=== PATIENT | female | born 1995 | race African-American/Black ===

== ENCOUNTER 2022-09-20 19:05 | Inpatient (IN) | payer MEDICAID ==
[~2022-09-20] VITALS: Ht 152.4 cm; Wt 64.4 kg
[~2022-09-20 19:05] MED LIST: ATOR10TA69 MT; LANTUSUD SUBCUT; LEVO-65 MT
[2022-09-20] MEDS ORDERED: SODIUM CHLORIDE 0.9% 1,000 ML IV ONE ×2 (20:30→21:30)
[2022-09-20 20:41] LABS: HEMOGLOBIN. 14.8 g/dL (12.0-16.0); MEAN CORPUSCULAR HEMOGLOBIN 28.4 pg (28.0-32.0); MEAN CORPUSCULAR VOLUME 90.2 fL (81.0-99.0); PLATELET 202 x1000/uL (130-400); RED BLOOD CELL COUNT 5.21 mill/uL (4.2-5.4); RED CELL DISTRIBUTION WIDTH 14.8 % (11.6-14.6)
[2022-09-20 20:52] LABS: CHLORIDE 100 mEq/L (98-107)
[2022-09-20 20:57] LABS: HCG SCREEN NEGATIVE
[2022-09-20 21:07] LABS: BETA HYDROXYBUTYRATE 8.7 mMol/L (0.0-0.3)
[2022-09-20] MEDS ORDERED: INSULIN REGULAR (DRIP) 100 UNITS in SODIUM CHLORIDE 0.9% 100 ML IV ONE (21:30)
[2022-09-20 21:37] LABS: PLATELET ESTIMATE NORMAL
[2022-09-20] MEDS ORDERED: IOHEXOL-350 100 ML BOTTLE ONE (22:40)
[2022-09-20 23:17] LABS: CHLORIDE 107 mEq/L (98-107)
[2022-09-20 23:24] LABS: PHOSPHORUS 3.5 mg/dL (2.5-4.9)
[2022-09-21] VITALS (18 sets, daily range): BP systolic 106–136; BP diastolic 59–82
[2022-09-21 00:48] LABS: CHLORIDE 108 mEq/L (98-107)
[2022-09-21 02:22] LABS: CHLORIDE 107 mEq/L (98-107)
[2022-09-21 03:32] LABS: BG BASE EXCESS -26.4 mmol/L (-2.0-2.0); BG CARBOXYHEMOGLOBIN 0.4 % (0.5-1.5); BG DEOXYHEMOGLOBIN 1.4 % (0.0-5.0); BG FRACTION INSPIRED OXYGEN 21; BG METHEMOGLOBIN 0.3 % (0.0-1.5); BG OXYGEN SATURATION 98.6 % (92.0-98.5); BG OXYHEMOGLOBIN 97.9 % (94.0-97.0); BG PCO2 12.6 mmHg (35.0-45.0); BG PO2 137.3 mmHg (75.0-100.0); BG SAMPLE SITE LEFT RADIAL; BG TOTAL HEMOGLOBIN 15.3 g/dL (12.0-18.0); BG VENT MODE ROOM AIR
[2022-09-21] MEDS ORDERED: KCL 20MEQ/100ML PREMIX 100 ML IV PRN (03:45)
[2022-09-21] MEDS ORDERED: HYDROMORPHONE HCL/PF 2MG/ML CPJ IV PRN (03:45)
[2022-09-21] MEDS ORDERED: BLOOD SUGAR DIAGNOSTIC STRIP TEST SCH (03:45)
[2022-09-21] MEDS ORDERED: SODIUM CHLORIDE 0.45% 1,000 ML IV SCH (03:45)
[2022-09-21] MEDS ORDERED: DEXTROSE 50% WATER 50ML SYRINGE IV PRN ×3 (03:45→09:00)
[2022-09-21] MEDS ORDERED: INSULIN REGULAR 100U/100ML PMX 100 ML IV SCH ×2 (03:45→09:00)
[2022-09-21] MEDS ORDERED: SODIUM CHLORIDE 0.9% 1,000 ML IV SCH (03:45)
[2022-09-21] MEDS ORDERED: ACETAMINOPHEN 650MG SUPP PR PRN ×2 (03:45)
[2022-09-21] MEDS ORDERED: SODIUM BICARBONATE 8.4% 1 MEQ/ML 50ML SYR IV NR (03:45)
[2022-09-21] MEDS ORDERED: NALOXONE HCL 0.4MG/ML VIAL IV PRN (04:30)
[2022-09-21 04:44] LABS: PROTHROMBIN TIME 10.7 sec (9.6-11.0)
[2022-09-21 07:14] LABS: CHLORIDE 111 mEq/L (98-107)
[2022-09-21 07:20] LABS: PHOSPHORUS 2.4 mg/dL (2.5-4.9)
[2022-09-21] MEDS: FAMOTIDINE 20MG/2ML VIAL IV SCH ×2 (09:10→20:23)
[2022-09-21] MEDS: ENOXAPARIN 40MG/0.4ML SYR SUBCUT SCH (09:10)
[2022-09-21] MEDS: DEXT 5%/0.45% NACL 1000ML 1,000 ML IV SCH ×3 (09:14→20:24)
[2022-09-21] MEDS: BLOOD SUGAR DIAGNOSTIC STRIP TEST SCH ×12 (09:14→20:14)
[2022-09-21 09:44] LABS: CHLORIDE 112 mEq/L (98-107)
[2022-09-21 09:51] LABS: PHOSPHORUS 1.2 mg/dL (2.5-4.9)
[2022-09-21] MEDS: POTASSIUM-SODIUM PHOSPHATE POWDER PACKET PO SCH ×2 (13:58→17:09)
[2022-09-21] MEDS: ONDANSETRON HCL 4MG/2ML INJ IV PRN ×2 (13:58→20:23)
[2022-09-21] MEDS ORDERED: MAGNESIUM 1 G PREMIX 100 ML IV NR (14:00)
[2022-09-21 18:45] LABS: CHLORIDE 110 mEq/L (98-107)
[2022-09-21 18:59] LABS: PHOSPHORUS 1.1 mg/dL (2.5-4.9)
[2022-09-22] VITALS (8 sets, daily range): BP systolic 124–139; BP diastolic 74–95
[2022-09-22 00:51] LABS: CHLORIDE 109 mEq/L (98-107)
[2022-09-22] MEDS: INSULIN GLARGINE 100 UNITS/ML SUBCUT SCH ×2 (02:23→20:27)
[2022-09-22] MEDS: BLOOD SUGAR DIAGNOSTIC STRIP TEST SCH ×4 (06:00→20:27)
[2022-09-22] MEDS: INSULIN LISPRO 100 UNITS/ML SUBCUT SCH ×7 (06:10→20:26)
[2022-09-22 06:29] LABS: BASOPHILS % 0.1 % (0.0-2.0); EOSINOPHILS % 0.2 % (0.0-5.0); HEMATOCRIT. 37.7 % (36.0-48.0); HEMOGLOBIN. 12.3 g/dL (12.0-16.0); MEAN CORPUSCULAR VOLUME 85.5 fL (81.0-99.0); MEAN PLATELET VOLUME 10.8 fl (7.4-10.4); MONOCYTES % 9.2 % (2.0-8.0); NEUTROPHILS % 68.5 % (40.0-76.0); PLATELET 154 x1000/uL (130-400); RED BLOOD CELL COUNT 4.41 mill/uL (4.2-5.4)
[2022-09-22 06:37] LABS: CHLORIDE 106 mEq/L (98-107)
[2022-09-22 06:48] LABS: HDL CHOLESTEROL 36 mg/dL (40-59); LDL CHOLESTEROL 128 mg/dL (5-100); PHOSPHORUS 1.5 mg/dL (2.5-4.9)
[2022-09-22 07:54] LABS: CLARITY URINE CLEAR (CLEAR); COLOR URINE YELLOW (YELLOW); KETONES URINE 3+ (NEGATIVE); LEUKOCYTE ESTERASE URINE NEGATIVE (NEGATIVE); NITRITE URINE NEGATIVE (NEGATIVE); OCCULT BLOOD URINE NEGATIVE (NEGATIVE); PROTEIN URINE 1+ (NEGATIVE); SPECIFIC GRAVITY URINE 1.014 (1.005-1.030); UROBILINOGEN URINE 0.2 E.U./dL (0.2-1.0)
[2022-09-22 09:05] LABS: *AMPHETAMINES SCREEN URINE NEGATIVE (NEGATIVE); *BARBITURATES SCREEN URINE NEGATIVE (NEGATIVE); *BENZODIAZEPINES SCREEN URINE NEGATIVE (NEGATIVE); *COCAINE SCREEN URINE NEGATIVE (NEGATIVE); CANNABINOID URINE SCREEN PRESUMTIVE POSITIVE (NEGATIVE); METHADONE URINE SCREEN NEGATIVE (NEGATIVE); OPIATES URINE SCREEN NEGATIVE (NEGATIVE); PHENCYCLIDINE URINE SCREEN NEGATIVE (NEGATIVE)
[2022-09-22] MEDS ORDERED: ACETAMINOPHEN 325MG TABLET PO PRN (09:45)
[2022-09-22] MEDS ORDERED: POTASSIUM CHLORIDE 20MEQ TABLET SR PO NR (10:00)
[2022-09-22] MEDS: POTASSIUM-SODIUM PHOSPHATE POWDER PACKET PO SCH ×2 (10:09→16:57)
[2022-09-22] MEDS: ENOXAPARIN 40MG/0.4ML SYR SUBCUT SCH (10:11)
[2022-09-22] MEDS: DEXT 5%/0.45% NACL 1000ML 1,000 ML IV SCH (10:11)
[2022-09-22] MEDS: FAMOTIDINE 20MG TABLET PO SCH ×2 (10:13→20:25)
[2022-09-22] MEDS ORDERED: SODIUM BICARBONATE 8.4% 1 MEQ/ML 50ML SYR IV NR (10:30)
[2022-09-22] MEDS: SODIUM CHLORIDE 0.45% 1,000 ML IV SCH ×2 (11:09→20:32)
[2022-09-22] MEDS ORDERED: POTASSIUM PHOS,M-BASIC-D-BASIC 30 MMOL in DEXT 5% WATER 500 ML IV NR (12:00)
[2022-09-22] MEDS: ATORVASTATIN CALCIUM 20MG TABLET PO SCH (20:25)
[2022-09-23] VITALS: BP 107/63
[2022-09-23 04:00] VITALS: BP 128/83
[2022-09-23 06:21] LABS: BASOPHILS % 0.4 % (0.0-2.0); EOSINOPHILS % 0.3 % (0.0-5.0); HEMATOCRIT. 36.4 % (36.0-48.0); LYMPHOCYTES % 45.7 % (20.0-50.0); MEAN CORPUSCULAR HEMOGLOBIN 27.6 pg (28.0-32.0); MEAN CORPUSCULAR VOLUME 83.8 fL (81.0-99.0); MEAN PLATELET VOLUME 10.2 fl (7.4-10.4); MONOCYTES % 14.8 % (2.0-8.0); NEUTROPHILS % 38.8 % (40.0-76.0); PLATELET 163 x1000/uL (130-400); RED BLOOD CELL COUNT 4.35 mill/uL (4.2-5.4); RED CELL DISTRIBUTION WIDTH 13.7 % (11.6-14.6)
[2022-09-23] MEDS: BLOOD SUGAR DIAGNOSTIC STRIP TEST SCH ×4 (06:28→21:11)
[2022-09-23] MEDS: SODIUM CHLORIDE 0.45% 1,000 ML IV SCH ×2 (06:29→17:07)
[2022-09-23] MEDS: INSULIN LISPRO 100 UNITS/ML SUBCUT SCH ×7 (06:30→21:25)
[2022-09-23 06:41] LABS: CHLORIDE 106 mEq/L (98-107)
[2022-09-23 08:20] VITALS: BP 124/75
[2022-09-23] MEDS: POTASSIUM-SODIUM PHOSPHATE POWDER PACKET PO SCH ×2 (08:43→17:08)
[2022-09-23] MEDS: FAMOTIDINE 20MG TABLET PO SCH ×2 (08:43→21:25)
[2022-09-23] MEDS: ENOXAPARIN 40MG/0.4ML SYR SUBCUT SCH (08:44)
[2022-09-23] MEDS ORDERED: POTASSIUM CHLORIDE INJ 40 MEQ in DEXT 5% WATER 250 ML IV ONE (10:45)
[2022-09-23] MEDS ORDERED: POTASSIUM CHLORIDE 20MEQ TABLET SR PO NR (11:09)
[2022-09-23] MEDS ORDERED: POTASSIUM-SODIUM PHOSPHATE POWDER PACKET PO NR (11:10)
[2022-09-23] MEDS: KCL 20MEQ/100ML X 2 FOR TOTAL KCL 40MEQ/200ML IV SCH ×2 (11:40→13:49)
[2022-09-23 12:00] VITALS: BP 143/98
[2022-09-23 16:00] VITALS: BP 133/92
[2022-09-23 20:00] VITALS: BP 143/94
[2022-09-23] MEDS: ATORVASTATIN CALCIUM 20MG TABLET PO SCH (21:25)
[2022-09-23] MEDS: INSULIN GLARGINE 100 UNITS/ML SUBCUT SCH (21:26)
[2022-09-24] VITALS: BP 128/68
[2022-09-24 04:00] VITALS: BP 132/87
[2022-09-24] MEDS: SODIUM CHLORIDE 0.45% 1,000 ML IV SCH ×2 (04:02→12:34)
[2022-09-24 05:30] LABS: BASOPHILS % 0.4 % (0.0-2.0); EOSINOPHILS % 0.4 % (0.0-5.0); HEMATOCRIT. 34.4 % (36.0-48.0); HEMOGLOBIN. 11.7 g/dL (12.0-16.0); LYMPHOCYTES % 58.5 % (20.0-50.0); MEAN CORPUSCULAR HEMOGLOBIN 28.6 pg (28.0-32.0); MEAN CORPUSCULAR VOLUME 83.7 fL (81.0-99.0); MEAN PLATELET VOLUME 10.1 fl (7.4-10.4); MONOCYTES % 13.5 % (2.0-8.0); NEUTROPHILS % 27.2 % (40.0-76.0); PLATELET 148 x1000/uL (130-400); RED BLOOD CELL COUNT 4.11 mill/uL (4.2-5.4); RED CELL DISTRIBUTION WIDTH 13.7 % (11.6-14.6)
[2022-09-24] MEDS: BLOOD SUGAR DIAGNOSTIC STRIP TEST SCH ×2 (06:12→11:55)
[2022-09-24] MEDS: INSULIN LISPRO 100 UNITS/ML SUBCUT SCH ×4 (06:52→11:58)
[2022-09-24 08:00] VITALS: BP 146/91
[2022-09-24] MEDS: FAMOTIDINE 20MG TABLET PO SCH (08:32)
[2022-09-24] MEDS: ENOXAPARIN 40MG/0.4ML SYR SUBCUT SCH (08:32)
[2022-09-24] MEDS: POTASSIUM-SODIUM PHOSPHATE POWDER PACKET PO SCH (08:32)
[2022-09-24 10:22] LABS: CHLORIDE 106 mEq/L (98-107)
[2022-09-24 10:37] LABS: PHOSPHORUS 2.7 mg/dL (2.5-4.9)
[2022-09-24] MEDS ORDERED: KCL 20MEQ/100ML PREMIX 100 ML IV SCH (11:00)
[2022-09-24] MEDS ORDERED: POTASSIUM CHLORIDE 20MEQ/PACKET PO NR (11:15)
[2022-09-24 12:00] VITALS: BP 150/90
[2022-09-24 15:39] VITALS: BP 150/90
== END 2022-09-24 16:05 | disposition home or self-care (01) | DRG 420 ==
LOC: ER 19:05 → MICUNO 22:10 → EDBEDREQSVC 09-21 03:10 → EDBEDREQTM 09-21 03:10 → EDBEDREQDT 09-21 03:10 → ENRESERV 09-21 03:24 → CANRESERV 09-21 03:24 → ENRESERV 09-21 06:29 → 7EST 09-22 02:30
PROVIDERS: ADMIT Hospitalist; ATTEND Hospitalist
DX: E10.10 Type 1 diabetes mellitus with ketoacidosis without coma (principal); U07.1 COVID-19; E83.39 Other disorders of phosphorus metabolism; D72.829 Elevated white blood cell count, unspecified; E78.5 Hyperlipidemia, unspecified; E87.1 Hypo-osmolality and hyponatremia; E87.6 Hypokalemia; J45.909 Unspecified asthma, uncomplicated; Z86.711 Personal history of pulmonary embolism; Z88.8 Allergy status to other drugs, medicaments and biological substances; Z79.899 Other long term (current) drug therapy; Z79.4 Long term (current) use of insulin; Z82.49 Family history of ischemic heart disease and other diseases of the circulatory system; Z91.14 Patient's other noncompliance with medication regimen
CPT/HCPCS: 36415; 36600; 71045; 71275; 80048; 80053; 80061; 80305; 81003; 82010; 82375; 82805; 82962; 83036; 83605; 83735; 83880; 84100; 84484; 84703; 85025; 87426; 93005; 99285; C1893; C9803; J1170; J1650; J1815; J2405; J3475; J3480; J3490; J7030; J7050; J7060; Q9967

== ENCOUNTER 2023-11-20 20:57 | Emergency (ER) | payer MEDICAID, OTHER ==
[~2023-11-20] VITALS: Ht 152.4 cm; Wt 56.0 kg
[2023-11-20 21:08] VITALS: BP 143/89; PULSE 107; RESP 18; TEMP 98.3; O2SAT 100
[2023-11-20] MEDS ORDERED: IBUP-2029 PO (21:58)
== END 2023-11-20 22:27 | disposition home or self-care (01) ==
LOC: ER 20:57
DX: R51.9 Headache, unspecified (principal); M54.2 Cervicalgia; E11.9 Type 2 diabetes mellitus without complications; V49.49XA Driver injured in collision with other motor vehicles in traffic accident, initial encounter; Y93.89 Activity, other specified; Y92.89 Other specified places as the place of occurrence of the external cause; Y99.8 Other external cause status
CPT/HCPCS: 99282